=== PATIENT | female | born 1995 ===

== ENCOUNTER 2018-10-31 03:50 | Emergency (ER) | payer OTHER ==
[~2018-10-31 03:50] MED LIST changes: -ADD25XRPT PO; -CLON-331 PO; -DEXT10TA9 PO; -MULT-1335 PO
[2018-10-31 03:56] VITALS: BP 138/98
[2018-10-31] MEDS ORDERED: CLON-331 PO (04:04)
[2018-10-31] MEDS ORDERED: MULT-1335 PO (04:04)
[2018-10-31] MEDS ORDERED: DEXT10TA9 PO (04:04)
[2018-10-31] MEDS ORDERED: ADD25XRPT PO (04:04)
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
== END 2018-10-31 05:06 | disposition home or self-care (01) ==
LOC: ER 04:02
DX: M79.89 Other specified soft tissue disorders (principal); R23.3 Spontaneous ecchymoses; Y04.8XXA Assault by other bodily force, initial encounter
CPT/HCPCS: 99284

== ENCOUNTER → 2018-10-31 | Outpatient (CLI) | payer OTHER ==
[~2018-10-31] MED LIST: ADD25XRPT PO; ALBU8.5H IH; BIOT250012 PO; CLON-331 PO; CYCL10TA29 PO; DEXT10TA9 PO; HYDR-653 PO; INUL2.5T PO; IRON18TA2 PO; MULT-1335 PO; NEPH PO; OMEG-152 PO; VITA-131 PO
== END ==
LOC: AMB 03:33
PROVIDERS: ATTEND Nurse Practitioner
DX: F41.9 Anxiety disorder, unspecified (principal); F10.120 Alcohol abuse with intoxication, uncomplicated; Y04.8XXA Assault by other bodily force, initial encounter
CPT/HCPCS: A0425; A0429